=== PATIENT | male | born 1950 ===

== ENCOUNTER 2020-05-29 23:27 | Emergency (ER) | payer MEDICARE ==
[~2020-05-29] VITALS: Ht 193 cm; Wt 95.4 kg
[2020-05-29 23:30] VITALS: BP 139/87
--- NOTE | 2020-05-30 01:19 | NUR ---
pt provided with leg bag for ji, instructions on care and use, and extra alcohol pads. Pt able to return demo.
== END 2020-05-30 01:42 | disposition home or self-care (01) ==
LOC: ED 05-30 00:01
DX: R31.0 Gross hematuria (principal); R33.9 Retention of urine, unspecified
CPT/HCPCS: 51702; 99284